=== PATIENT | female | born 1960 | race Two or more races ===

== ENCOUNTER 2021-08-14 07:00 | Inpatient (IN) | payer OTHER ==
[~2021-08-14] VITALS: Ht 160 cm; Wt 79.8 kg
[2021-08-14] MEDS ORDERED: LOSARTAN-HCTZ1 EAC2 PO (09:07)
[2021-08-14] MEDS ORDERED: LIPITOR20 MG PO (09:07)
[2021-08-14] MEDS ORDERED: GLIMEPIRIDE2 MG (09:08)
[2021-08-14] MEDS ORDERED: TOPROL XL50 M1 PO (09:08)
[2021-08-14] MEDS ORDERED: JANUMET XR 50-1 EAC1 PO (09:08)
[2021-08-14] MEDS ORDERED: AMLODIPINE BESYL5 MG PO (09:09)
[2021-08-20] MEDS ORDERED: ESZOPICLONE3 MG (16:07)
== END 2021-08-23 17:00 | disposition home or self-care (01) | DRG 470 ==
LOC: O/R 08-20 06:57 → SURH 08-20 06:57
PROVIDERS: ADMIT Orthopaedic Surgery; ATTEND Orthopaedic Surgery
PROC: 0SRC0J9 Replacement of Right Knee Joint with Synthetic Substitute, Cemented, Open Approach (ICD-10-PCS; principal; 2021-08-20 12:00)
DX: M17.11 Unilateral primary osteoarthritis, right knee (principal); D62 Acute posthemorrhagic anemia; M85.661 Other cyst of bone, right lower leg; Z20.822 Contact with and (suspected) exposure to COVID-19; I10 Essential (primary) hypertension; E11.9 Type 2 diabetes mellitus without complications; Z79.4 Long term (current) use of insulin